=== PATIENT | male | born 1975 | race Caucasian/White ===

== ENCOUNTER 2024-09-27 12:52 | Outpatient (AMB) | payer MEDICAID, SELFPAY ==
[2024-09-27 13:09] VITALS: BP 153/81; PULSE 77; RESP 19; TEMP 36.9; O2SAT 95; BMI 34.7
--- NOTE | 2024-09-27 13:09 | RHCORTHONT_ITS ---
Vital signs 09/27/24 13:09 Height 1.83 m Height Method Stated Weight 116.12 kg Weight Measurement Method Standing Scale BMI 34.7 BP 153/81 H Blood Pressure Source Automatic Cuff Blood Pressure Location Right Upper Arm Position Sitting Respiration 19 Pulse 77 Pulse Source Monitor Temp 98.5 F Temp Source Temporal Artery Scan Pulse Oximetry (%) 95 Oxygen Delivery Method Room Air Med/Allergies Allergies & Medications Allergies No Known Allergies Allergy (Verified 09/27/24 13:10) Medication Reconciliation No Known Home Medications 09/27/24 [History Confirmed 09/27/24] Exam Exam Patient is in no acute distress and is cooperative with the examination today. Breathing is nonlabored. In no respiratory distress. Patient has no paraspinal tenderness. Spinal deformity [cannot] be appreciated. The gait of the patient is [nonantalgic] Bilateral extremities were evaluated and demonstrates sensation intact to light touch. Palpable pedal pulses are present. No significant edema is present. Bilateral knees were examined and the patient has full strength and range of motion.. The right hip was examined. Patient was able to flex to 90 degrees, adduct to 30 degrees, abduct to 40 degrees, internally rotate to 20 degrees, and externally rotate to 20 degrees. Patient has a negative logroll. Stinchfield is negative. The patient is nontender diffusely to touch. The left hip was examined. Patient was able to flex to [90] degrees, adduct to [30] degrees, abduct to [40] degrees, internally rotate to 10 degrees, and externally rotate to [20] degrees. Patient has a positive logroll. The stinchfield is [negative]. X-rays demonstrate mild joint space narrowing. There is sclerosis of the femoral head consistent with avascular porosis. I will get an MRI to confirm this Assessment and Plan Problem List (1) Avascular necrosis of bone of left hip: Status: Acute Plan: Patient is a 49-year-old male with a left hip avascular porosis likely. We will get repeat x-rays of both hips as well as an MRI of his left hip to rule out avascular porosis. It is pre-. We will see him back after his x-rays and MRIcollapse and I probably would recommend continue conservative treatment at this time Office Procedures GNS Level of Care Nursing/Assessment Patient Status: Initial/New Patient Nursing Assessment/Reassesment: Medication Reconciliation, Update PMH in EMR and Vital Signs Coordination of Care: Complex Care and Chronic Disease 1-5, Education Complex Pt/Fam, Consent,records obtained, informed consent, 1 Ins Authorization, Lab and Imaging orders, Results/Orders obtained and Staff clarify orders New Patient Charge New Patient Point Assignment: 1124 New Patient 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 SYSTEM Level 4 ([id number]) MA Intake Visit Data Collection New Patient or Established: New Patient (never been to [facility]) Reason for Visit:: LEFT HIP PAIN Seen by Clinical Staff ONLY (RN/MA): No Plastic Fabricator Required: No PCP or OBGYN visit in last 3 months: Yes Hx Now: No Do You Feel Safe at Home: Yes Authorities Contacted: N/A Questionairres Past Medical History Past Medical History Have you ever been diagnosed with any of the following: Surgical History Total Knee Replacement: Yes (RIGHT 03/2024) Subjective Visit Visit for: hip (LEFT) Immunization / Flu Flu Vaccine in the Last 12 Months: Yes Flu Vaccine Exclusion Criteria: Already Received History of Present Illness Chief complaint: Left hip pain Date of injury / onset of symptoms: 10/2021 Patient is a 49-year-old male with a recent right total hip replacement done in [place]. The left hip he reports has been bothering him quite a bit. He has a history of radiation of testicular cancer and he reports that this was the cause of the pain.The pains been ongoing for several years. He has tried anti- inflammatories Personal History Occupation: NONE Hobbies: NONE Red flag PMH: smoker Pain Pain level (0-10): 2 Pain duration: ON AND OFF Pain location: groin and other (specify) (HIP SIDE) Pain quality: sharp and dull Pain timing: night and increases with activity Associated signs & symptoms: none Ambulatory data Ambulatory device: none Treatments Improvement with previous injections: No Improvement with PT: No Improvement with NSAIDS: no Review of Systems Review of Systems: All systems negative unless otherwise noted in HPI.
== END 2024-09-27 13:28 | disposition home or self-care (01) ==
PROVIDERS: Supervising Provider Orthopaedic Surgery Adult Reconstructive Orthopaedic Surgery; Visit Provider Orthopaedic Surgery Adult Reconstructive Orthopaedic Surgery
DX: M87.88 Other osteonecrosis, other site (principal); Z96.641 Presence of right artificial hip joint; C62.90 Malignant neoplasm of unspecified testis, unspecified whether descended or undescended; Z92.3 Personal history of irradiation
CPT/HCPCS: 99204; G0463

== ENCOUNTER 2024-10-21 13:55 | Outpatient (AMB) | payer MEDICAID, SELFPAY ==
[2024-10-21 14:50] VITALS: BP 135/87; PULSE 67; RESP 18; TEMP 36.4; O2SAT 97; BMI 34.2
--- NOTE | 2024-10-21 14:50 | ORTHONT_ITS ---
Vital signs 10/21/24 14:50 Height 1.83 m Height Method Stated Weight 114.447 kg Weight Measurement Method Standing Scale BMI 34.2 BP 135/87 H Blood Pressure Source Automatic Cuff Blood Pressure Location Right Upper Arm Position Sitting Respiration 18 Pulse 67 Pulse Source Monitor Temp 97.6 F Temp Source Temporal Artery Scan Pulse Oximetry (%) 97 Oxygen Delivery Method Room Air Med/Allergies Allergies & Medications Allergies No Known Allergies Allergy (Verified 10/21/24 14:51) Medication Reconciliation naproxen 500 mg tablet 500 mg PO BID #60 tabs 10/21/24 [Rx] Exam Exam Patient is in no acute distress and is cooperative with the examination today. Breathing is nonlabored. In no respiratory distress. Patient has no paraspinal tenderness. Spinal deformity [cannot] be appreciated. The gait of the patient is [nonantalgic] Bilateral extremities were evaluated and demonstrates sensation intact to light touch. Palpable pedal pulses are present. No significant edema is present. Bilateral knees were examined and the patient has full strength and range of motion.. The right hip was examined. Patient was able to flex to 90 degrees, adduct to 30 degrees, abduct to 40 degrees, internally rotate to 20 degrees, and externally rotate to 20 degrees. Patient has a negative logroll. Stinchfield is negative. The patient is nontender diffusely to touch. The left hip was examined. Patient was able to flex to [90] degrees, adduct to [30] degrees, abduct to [40] degrees, internally rotate to 10 degrees, and externally rotate to [20] degrees. Patient has a positive logroll. The stinchfield is [negative]. X-rays demonstrate mild joint space narrowing. There is sclerosis of the femoral head consistent with avascular necrosis. I will get an MRI to confirm this Assessment and Plan Problem List (1) Avascular necrosis of bone of left hip: Status: Acute Plan: Patient is a 49-year-old male with a left hip avascular Necrosis likely. I reviewed x-rays from [place] [facility]. This demonstrates some chondral cyst in the femoral head. There is no significant arthritis. We will get an MRI to better confirm the AVN. The patient really wants a hip replacement as above negative side. Reports the pain is limiting Office Procedures GNS Level of Care Nursing/Assessment Patient Status: Established Patient Nursing Assessment/Reassesment: Medication Reconciliation, Update PMH in EMR and Vital Signs Coordination of Care: Complex Care and Chronic Disease 1-5, Education Complex Pt/Fam, Consent,records obtained, informed consent, 1 Ins Authorization, Results/Orders obtained and Staff clarify orders Established Patient Charge Established Patient Point Assignment: 110 Established Patient Point Charge: EP Level 3 (80-115) MA Intake Visit Data Collection New Patient or Established: Established Patient (seen at [facility] within 3 years) Reason for Visit:: F/U XRAYS Seen by Clinical Staff ONLY (RN/MA): No Verbal consent obtained for Telemed visit?: No Tank Officer Required: No PCP or OBGYN visit in last 3 months: Yes Hx Now: No Do You Feel Safe at Home: Yes Authorities Contacted: N/A Questionairres Past Medical History Past Medical History Have you ever been diagnosed with any of the following: Surgical History Total Knee Replacement: Yes (RIGHT 03/2024) Subjective Visit Visit for: follow up visit, hip and x-rays Immunization / Flu Flu Vaccine in the Last 12 Months: No Flu Vaccine Exclusion Criteria: No Exclusion Criteria and Already Received History of Present Illness Chief complaint: F/Y XRAYS Date of injury / onset of symptoms: 10/2021 Patient is a 49-year-old male with a recent right total hip replacement done in [place]. The left hip he reports has been bothering him quite a bit. He has a history of radiation of testicular cancer and he reports that this was the cause of the pain.The pains been ongoing for several years. He has tried anti- inflammatories Personal History Occupation: NONE Hobbies: NONE Red flag PMH: smoker Pain Pain level (0-10): 2 Pain duration: CONSTANT Pain location: groin and other (specify) (HIP SIDE) Pain quality: sharp and dull Pain timing: night, increases with activity and stairs Associated signs & symptoms: numbness, weakness, stiffness and none Ambulatory data Ambulatory device: none Treatments Improvement with previous injections: No Improvement with PT: No Improvement with NSAIDS: n/a Review of Systems Review of Systems: All systems negative unless otherwise noted in HPI.
== END 2024-10-21 14:53 | disposition home or self-care (01) ==
PROVIDERS: Supervising Provider Orthopaedic Surgery Adult Reconstructive Orthopaedic Surgery; Visit Provider Orthopaedic Surgery Adult Reconstructive Orthopaedic Surgery
DX: M87.88 Other osteonecrosis, other site (principal); Z96.641 Presence of right artificial hip joint; Z85.47 Personal history of malignant neoplasm of testis; Z92.3 Personal history of irradiation
CPT/HCPCS: 99213; G0463

== ENCOUNTER → 2024-11-10 | Outpatient (CLI) | payer MEDICAID, SELFPAY ==
--- NOTE | 2024-11-10 08:30 | XR_ITS ---
Examination: MRI left hip without intravenous contrast. Date and time of exam: November 10, 2024 2032 hours INDICATIONS: Left hip pain beginning 2 years ago Technique: Multiple MRI images of the left hip have been obtained T1 weighted coronal sections, TR 500, TE 12 Proton density coronal fat saturated images, TR 3000, TE 71 T2-weighted coronal images, 5850, TE 104 T1-weighted axial images, TR 521, TE 12 T2-weighted axial fat suppressed images, TR 5730, TE 103. Findings: Magnetic susceptibility artifact left hip Moderate narrowing left hip joint Extensive serpiginous signal occupying more than 50% the left femoral head consistent with avascular necrosis Labral margins intact Bones of the pelvis exhibit adequate marrow signal IMPRESSION: Moderate left hip osteoarthritis Extensive left femoral head avascular necrosis
== END | disposition home or self-care (01) ==
PROVIDERS: PCP Physician Assistant; Referring Provider Orthopaedic Surgery Adult Reconstructive Orthopaedic Surgery; Visit Provider Orthopaedic Surgery Adult Reconstructive Orthopaedic Surgery
DX: M16.12 Unilateral primary osteoarthritis, left hip (principal); M87.852 Other osteonecrosis, left femur
CPT/HCPCS: 73721

== ENCOUNTER 2024-11-15 14:32 | Outpatient (AMB) | payer MEDICAID, SELFPAY ==
[2024-11-15 15:53] VITALS: BP 133/86; PULSE 77; RESP 19; TEMP 36.6; O2SAT 96; BMI 34.7
--- NOTE | 2024-11-15 15:53 | PD.ORTHCLVIS ---
Vital signs 11/15/24 15:53 Height 1.83 m Height Method Stated Weight 116.205 kg Weight Measurement Method Standing Scale BMI 34.7 BP 133/86 H Blood Pressure Source Automatic Cuff Blood Pressure Location Left Upper Arm Position Sitting Respiration 19 Pulse 77 Pulse Source Monitor Temp 97.9 F Temp Source Temporal Artery Scan Pulse Oximetry (%) 96 Oxygen Delivery Method Room Air Med/Allergies Allergies & Medications Allergies No Known Allergies Allergy (Verified 11/15/24 15:54) Medication Reconciliation naproxen 500 mg tablet 500 mg PO BID #60 tabs 10/21/24 [Rx Confirmed 11/15/24] Exam Exam Patient is in no acute distress and is cooperative with the examination today. Breathing is nonlabored. In no respiratory distress. Patient has no paraspinal tenderness. Spinal deformity [cannot] be appreciated. The gait of the patient is [nonantalgic] Bilateral extremities were evaluated and demonstrates sensation intact to light touch. Palpable pedal pulses are present. No significant edema is present. Bilateral knees were examined and the patient has full strength and range of motion.. The right hip was examined. Patient was able to flex to 90 degrees, adduct to 30 degrees, abduct to 40 degrees, internally rotate to 20 degrees, and externally rotate to 20 degrees. Patient has a negative logroll. Stinchfield is negative. The patient is nontender diffusely to touch. The left hip was examined. Patient was able to flex to [90] degrees, adduct to [30] degrees, abduct to [40] degrees, internally rotate to 10 degrees, and externally rotate to [20] degrees. Patient has a positive logroll. The stinchfield is [negative]. X-rays demonstrate mild joint space narrowing. There is sclerosis of the femoral head consistent with avascular necrosis. MRI demonstrates that there is avascular necrosis of the left hip. There is mild arthritis present Assessment and Plan Problem List (1) Avascular necrosis of bone of left hip: Status: Acute Plan: Patient is a 49-year-old male with a left hip avascular Necrosis With Mild secondary Arthritis changes present. 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 I discussed with him that he has not tried significant conservative treatment. He is 49 years old and has almost no limp. I would recommend continued conservative treatment including physical therapy and anti-inflammatories. He persistently asked me for pain medications. To be quite honest, he is translating what I am telling him to his mom and I was told that he is not providing accurate translations to his mom and the mom is quite upset. I am not exactly comfortable doing a hip replacement on this patient.He has not tried continue conservative treatment and is honestly quite combative. I have called his primary care provider To discuss this. If the patient is just unhappy with me now, he is very unlikely be happy with me after operated on. I thus recommend that he see another orthopedic provider Especially since his degenerative changes are mild at this point. I again emphasized that he is 49 years old and I would recommend continue conservative treatment for now. Office Procedures GNS Level of Care Nursing/Assessment Patient Status: Established Patient Nursing Assessment/Reassesment: Medication Reconciliation, Update PMH in EMR and Vital Signs Coordination of Care: Complex Care and Chronic Disease 1-5, Education Complex Pt/Fam, Consent,records obtained, informed consent, Results/Orders obtained and Staff clarify orders Established Patient Charge Established Patient Point Assignment: 95 Established Patient Point Charge: EP Level 3 (80-115) MA Intake Visit Data Collection New Patient or Established: Established Patient (seen at [facility] within 3 years) Reason for Visit:: MRI F/U Seen by Clinical Staff ONLY (RN/MA): No Recruitment Internship Required: No PCP or OBGYN visit in last 3 months: Yes Hx Now: No Do You Feel Safe at Home: Yes Authorities Contacted: N/A Questionairres Past Medical History Past Medical History Have you ever been diagnosed with any of the following: Surgical History Total Knee Replacement: Yes (RIGHT 03/2024) Subjective Visit Visit for: follow up visit and MRI Immunization / Flu Flu Vaccine in the Last 12 Months: No Flu Vaccine Exclusion Criteria: No Exclusion Criteria History of Present Illness Chief complaint: F/Y XRAYS Date of injury / onset of symptoms: 10/2021 Patient is a 49-year-old male with a recent right total hip replacement done in [place]. The left hip he reports has been bothering him quite a bit. He has a history of radiation of testicular cancer and he reports that this was the cause of the pain.The pains been ongoing for several years. He has tried anti-inflammatories Personal History Occupation: NONE Hobbies: NONE Red flag PMH: smoker Pain Pain level (0-10): 2 Pain duration: CONSTANT Pain location: groin and other (specify) (HIP SIDE) Pain quality: sharp and dull Pain timing: night and increases with activity Associated signs & symptoms: none Ambulatory data Ambulatory device: none Treatments Improvement with previous injections: No Improvement with PT: No Improvement with NSAIDS: no Review of Systems Review of Systems: All systems negative unless otherwise noted in HPI.
== END 2024-11-15 16:17 | disposition home or self-care (01) ==
PROVIDERS: Supervising Provider Orthopaedic Surgery Adult Reconstructive Orthopaedic Surgery; Visit Provider Orthopaedic Surgery Adult Reconstructive Orthopaedic Surgery
DX: M87.88 Other osteonecrosis, other site (principal); M16.12 Unilateral primary osteoarthritis, left hip
CPT/HCPCS: 99213; G0463